=== PATIENT | male | born 1940 | race Caucasian/White ===

== ENCOUNTER → 2017-09-24 | Outpatient (CLI) | payer MEDICARE | END | disposition home or self-care (01) | LOC: CFH 08:17 | PROVIDERS: ATTEND Internal Medicine Cardiovascular Disease | DX: I25.10 Atherosclerotic heart disease of native coronary artery without angina pectoris (principal); R55 Syncope and collapse | CPT/HCPCS: 78452; 93017; A9502 ==

== ENCOUNTER → 2019-04-03 | Outpatient (CLI) | payer MEDICARE | END | disposition home or self-care (01) | LOC: CFH 09:32 | PROVIDERS: ATTEND Internal Medicine Cardiovascular Disease | DX: I07.1 Rheumatic tricuspid insufficiency (principal); I10 Essential (primary) hypertension | CPT/HCPCS: 93306 ==

== ENCOUNTER 2020-02-01 08:58 | Outpatient (CLI) | payer MEDICARE ==
[2020-02-01] MEDS ORDERED: Enalapril PO (09:27)
[2020-02-01] MEDS ORDERED: TAMS-11 PO (09:27)
[2020-02-01] MEDS ORDERED: Omeprazole PO (09:27)
[2020-02-01] MEDS ORDERED: Atorvastatin PO (09:27)
[2020-02-01] MEDS ORDERED: finasteride PO (09:27)
[2020-02-01 10:51] LABS: ALBUMIN 3.4 g/dL (3.4-5.0); ANION GAP 5 mmol/L (5-15); CALCIUM 8.6 mg/dL (8.5-10.1); CHLORIDE 107 mmol/L (98-107)
[2020-02-01 10:55] LABS: ALANINE AMINOTRANSFERASE 30 U/L (12-78); ALKALINE PHOSPHATASE 69 U/L (45-117); CREATININE 0.92 mg/dL (0.7-1.3); TOTAL PROTEIN 6.9 g/dL (6.4-8.2)
[2020-02-05] MEDS ORDERED: BACITRACIN ZINC OINT 500U/GM, 0.9 GM ONE (15:22)
[2020-02-05] MEDS ORDERED: BACITRACIN OINT 500U/GM, 15 GM ONE (15:23)
== END 2020-02-01 23:59 | disposition home or self-care (01) ==
LOC: STAR 08:58
PROVIDERS: ATTEND Urology
DX: Z01.812 Encounter for preprocedural laboratory examination (principal); N47.1 Phimosis; I45.10 Unspecified right bundle-branch block; Z20.828 Contact with and (suspected) exposure to other viral communicable diseases
CPT/HCPCS: 36415; 80053; 87635; 93005

== ENCOUNTER 2020-02-05 12:26 | Day surgery (SDC) | payer MEDICARE ==
[~2020-02-05] VITALS: Ht 182.9 cm; Wt 112.2 kg
[~2020-02-05 12:26] MED LIST: Atorvastatin PO; Enalapril PO; Omeprazole PO; TAMS-11 PO; finasteride PO
[2020-02-05] MEDS ORDERED: CHOL400C11 PO (13:22)
[2020-02-05] MEDS ORDERED: ASPI-515 PO (13:22)
[2020-02-05] MEDS ORDERED: CHLORHEXIDINE 15 ML UDC MM ONE (13:30)
[2020-02-05] MEDS ORDERED: LACTATED RINGERS 1,000 ML IV SCH (13:30)
[2020-02-05] MEDS ORDERED: ASPI-650 PO (14:00)
[2020-02-05] MEDS ORDERED: GLUCOSOMINE PO (14:04)
[2020-02-05] MEDS ORDERED: EYE VITAMINS (14:04)
[2020-02-05] MEDS ORDERED: CHON100P3 PO (14:04)
[2020-02-05] MEDS ORDERED: PROPOFOL 50 ML ONE (14:18)
[2020-02-05] MEDS ORDERED: FENTANYL PF 250 MCG/5ML ONE (14:19)
[2020-02-05] MEDS ORDERED: BUPIVACAINE/PF 0.25% ONE (14:24)
[2020-02-05] MEDS ORDERED: CEFAZOLIN 1,000 MG ONE (14:37)
[2020-02-05] MEDS ORDERED: ONDANSETRON 2MG/ML, 2ML ONE (14:37)
[2020-02-05] MEDS ORDERED: DEXAMETHASONE 4 MG/ML, 1ML ONE (14:37)
[2020-02-05] MEDS ORDERED: PROPOFOL 10 MG/ML, 20ML ONE (14:37)
[2020-02-05] MEDS ORDERED: BUPIVACAINE/PF 0.25% INFIL ONE (14:55)
[2020-02-05] MEDS ORDERED: ACETAMINOPHEN 325 MG TABLET PO PRN (15:00)
[2020-02-05] MEDS ORDERED: LABETALOL 5MG/ML, 20ML IV PRN (15:00)
[2020-02-05] MEDS ORDERED: DIAZEPAM 5 MG/ML, 2ML IVPush PRN (15:00)
[2020-02-05] MEDS ORDERED: morphine SULFATE 10 MG/ML, 1ML IVPush PRN (15:00)
[2020-02-05] MEDS ORDERED: EPHEDRINE 50 MG/ML, 1ML IVPush PRN (15:00)
[2020-02-05] MEDS ORDERED: EPHEDRINE 50 MG/ML, 1ML IM PRN (15:00)
[2020-02-05] MEDS ORDERED: ONDANSETRON 2MG/ML, 2ML IVPush PRN (15:00)
[2020-02-05] MEDS ORDERED: MEPERIDINE/PF 25MG/0.5ML IVPush PRN (15:00)
[2020-02-05] MEDS ORDERED: DIPHENHYDRAMINE 50 MG/ML, 1ML IVPush PRN (15:00)
[2020-02-05] MEDS ORDERED: OXYcodone 5 MG/5 ML ORAL.SOL UDC PO PRN (15:00)
[2020-02-05] MEDS ORDERED: FENTANYL PF 100 MCG/2ML IV PRN (15:00)
[2020-02-05] MEDS ORDERED: PROMETHAZINE 25 MG/ML, 1ML IVPush PRN (15:00)
[2020-02-05] MEDS ORDERED: HYDROcodone/APAP 5/325 TABLET PO PRN (16:00)
== END 2020-02-05 17:20 | disposition home or self-care (01) ==
LOC: OUT 12:26
PROVIDERS: ATTEND Urology
DX: N47.1 Phimosis (principal); N40.0 Benign prostatic hyperplasia without lower urinary tract symptoms; Z79.899 Other long term (current) drug therapy
CPT/HCPCS: 54150; J0690; J1100; J2405; J2704; J3010; J3490; J7120

== ENCOUNTER → 2020-03-27 | Outpatient (CLI) | payer MEDICARE ==
[~2020-03-27] MED LIST changes: +ASPI-515 PO; +ASPI-650 PO; +CHOL400C11 PO; +CHON100P3 PO; +EYE VITAMINS; +GLUCOSOMINE PO
== END | disposition home or self-care (01) ==
LOC: CVU 08:35
PROVIDERS: ATTEND Internal Medicine Cardiovascular Disease
DX: I65.23 Occlusion and stenosis of bilateral carotid arteries (principal)
CPT/HCPCS: 93880